=== PATIENT | male | born 1960 | race African-American/Black ===

== ENCOUNTER 2023-03-09 17:55 | Emergency (ER) | payer SELFPAY ==
--- OUTSIDE RECORDS SUMMARY | 2023-03-09 18:00 | XMS REPORT | Continuity of Care Document ---
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 [place] 12:00:39 12:48:23 [facility] 2021-06-28 2021-06-28 Outpatient [facility] [id number] [place] 09:24:26 10:14:51 [facility] 2021-06-28 2021-06-28 Outpatient [facility] [id number] [place] 09:02:31 09:05:42 [facility] 2021-05-11 2021-05-11 Outpatient [facility] [id number] [place] 00:00:00 00:00:00 [facility] 2021-05-10 2021-05-10 Outpatient [facility] [id number] [place] 09:01:38 09:47:51 [facility] 2021-05-10 2021-05-10 Outpatient [facility] [id number] [facility] 08:21:45 08:21:48 [facility] 2021-04-21 2021-04-21 [facility] [id number] [facility] 16:11:16 16:11:32 [facility] 2021-04-21 2021-04-21 Outpatient [facility] [id number] [facility] 14:02:49 14:03:51 [facility] 2021-03-15 2021-03-15 Outpatient [facility] [id number] [facility] 12:44:55 12:44:59 [facility] 2021-03-15 2021-03-15 Outpatient MAREKL, [facility] [id number] [facility] 11:04:31 11:35:02 [facility] 2021-03-01 2021-03-01 Outpatient [facility] [id number] [facility] 00:00:00 00:00:00 [facility] 2021-01-17 2021-01-21 Inpatient [facility] [id number] [facility] 15:51:00 23:00:00 [facility] 2021-01-13 2021-01-17 Hospital [facility] [id number] [facility] 20:25:00 15:51:00 Encounter GIULIA [facility] 2021-01-13 2021-01-13 Emergency ADINA, [facility] [id number] [facility] 20:44:29 21:06:05 [facility] 2020-12-28 2020-12-28 Outpatient [facility] [id number] [facility] 10:16:25 10:16:59 [facility] 2020-12-28 2020-12-28 Outpatient ARSENIO [facility] [id number] [facility] 00:00:00 00:00:00 [facility] Results Test Description Test Time Test Comments Results Result Comments Source HIV 1+2 Ab+HIV1 p24 Ag SerPl Ql [place] 2021-08-23 12:06:13 Test Item Value Reference Range Interpretation Comme nts HIV 1+2 Ab+HIV1 p24 Ag SerPl Ql IA (test code = 81161-2) NEGATIVE Negative HHSCMV PCR [id number] 09:10:00 Test Item Value Reference Range Interpretation Comments CMV PCR (test Negative Negative No Cytomegalov irus DNA code = Detected.This t est was 5000-5) developed and i ts performance characteristics determinedby [employer]. It has not been cleared or approved by the Food and DrugAdminis tration. The FDA has det ermined that such clear ance orapproval is n ot necessary. PAMELA (test Performed at: 01 - code = PAMELA) [address] [id number] Director: Bayron Garcia MD, Phone: [phone] [facility] DNA Quant, [id number] 07:09:00 Test Item Value Reference Range Interpretation Comments Luis Angel-[facility] Positive <100 Negative EBV DNA detect ed.The DNA Quant, copies/mL quantitative ra nge of PCR (test this assay is 1 00 to 1 code = million copies/ mL.This 29665-4) test was develo ped and its performance characteristics determinedby [employer]. It has not been cleared or approved by the Food and DrugAdminis tration. log10 EBV Unable to calcu late DNA Qn PCR result since (test code = [place] 62374-6) [facility]. PAMELA (test Performed at: - code = PAMELA) [address] [id number] Director: Bayron Garcia MD, Phone: [phone] [facility] HospitalMethylmalonic [id number] 17:08:00 Test Item Value Reference Interpretation Comments Range Methylmalonic 95 nmol/L 0-378 Acid, Serum (test code = 19984-1) Disclaimer: (test Comment This test was developed and code = 29122151) its perform ance characteristics determined by [facility]. It has not been cleared or appr ovedby the Food and Drug Administration. PAMELA (test code = Performed at: PAMELA) [facility]144 [address] [place], [place] [id number] Director: Bayron Garcia MD, Phone: [phone] [facility] HospitalNon-Manufacturing Quality Manager, Other, [id number] 10:48:00 Test Item Value Reference Range Interpretation Comments Case Report (test code Non-gynecologic = 507228718) Cytology Report Case: [id number] Authorizing Provider: Giulia Aguilar MD Collected: 01/14/2021 03:45 PM Ordering Location: Emergency [facility] Received: 01/17/2021 07:40 AM Pathologist: Neelima Henry MD Specimen: Other (Specify in Comments), Cerebrospinal Fluid Specimen Adequacy Satisfactory for (test code = evaluation 880988709) Final Diagnosis (test Negative for malignancy code = 069774975) See comment Comment (test code = h3unzXKbFQKflEJ9HnDkANK 873585771) uz1bec8AqzDGggPMuPUojeI BdcmLuhh06fPP6qE49IE4iL SVpDhJ9NFTgbfP3Lmt3JARw WRHklOMcB979k7uvy1prxhZ nvZU3tMlhVBPjNDPpZZahEB LrWdBkF1GgAXOiw1AmcW0cp CBmbHVpZCBpcyBwYXVjaWNl lKp3eZDwEUyktGsoqiTbAYB zwV2krL1nlFAyrf3ogNJrmZ == Pertinent Clinical m1fpzGNqUHHjz3ypWZOscQP Information (test code iYlJwRoRdTiKmLsc5KSSdwm = 08862358) O9Dtp4CGIoVCcdnX9bKDJzG HjgK4seahIbjZGzNTBwAIc8 pV5unBtmpP5vPlReCgUjIML LEWLxHmKvd9RyzdXsLUWysU ldSO9ktG0dMIUigBJiTEY8u DJnKOYdhdRgbPD8mCXrNOKh a6IbozwqlBAbJM3= Gross Description y7rjoNUuTLMysPHJNALlNHe (test code = 33983) ajoKlTFVomPSdJ0RustwdSH ghXE3iUE3ztIldmRZfbQUkD O6RGQNoVvYxJHQlnMAmrbFd RnWxUVMpmMSrhSO7TZXwMF6 laqajSGtzDUtgABXdlyO8XF DdmSLiJ0NiXNPcJA2hqkicV VC7AIdwvN5ccpZIPvipBt3o dHRibHtcZjFcZmNoYXJzZXQ jVISqkCubNNRtZFg0mD0HLr plELQ9SGOYTglxPTHsLJ6Tx 3gyWHOmjOPzYGX4TFwmeZDh DMIfQQXkXCs1VKUsIQfcaMZ cUO1dfJjaNzspmTgpt0CcoL BcXGlkIDUxMDAyIFxcZGIgI A6JToIlXCqwETYgBeGrPNd9 TVg2OA9AZdUzVPMwOyldUgL wDJDeBIq5OOvsSZ2EPXTbKj U3OBZ9MBIuFES0JuYjYHw8U DIgXFxmIEFyaWFsIFxcZnMg TRGxOMTqZKntchJ9JDWyEEk uXGZzMTYgIFxwYXIgDQpccG sulQ3yNJIhJ03yr6VHh6WvN M0KZCk2xgPeuncmiX5cKOBp eyGcJFdoeYIdI7jyQzKsPKD fUiEbQ5Jzg5XvB9iyKEOzXo a2eJCyheUgBZi5CVKgSrGxj 6bjyWLxYC3ZGFWAoPOdx5Mx kfQSAEBfl3UqoT2qw4unGOJ nbQZnPN3HUJYQnAQay5Snvy FElANfPVN3vQoqp0nwGYNmy WVwLU1KCDDvSKnpJGJqbPRZ LTB4BD7yRVtedZSfqudjUEC mP7RhV4LujlPntXXyZEPlgn Ude3pdUKY5TPQmoBVbbCTlX cQbKhfzLOH2ORxig3vbSVO5 XHNsbXVsdDAgDQpcZnMxNnt nAVVkB1VaQ7XywiI3HRq1 [facility] HealthVZ Real Time [id number] 17:08:00 Test Item Value Reference Range Interpretation Comments VZV Real Time Negative Negative This test was developed PCR (test and its perform ance code = characteristics 50781-0) determinedby [employer]. It has not been cleared or approved by the Food and DrugAdminis tration. The FDA has det ermined that such clear ance orapproval is n ot necessary. PAMELA (test Performed at: - code = PAMELA) [address] [id number] Director: Bayron Garcia MD, Phone: [phone] [facility] by [id number] 17:08:00 Test Item Value Reference Range Interpretation Comments HSV-1 DNA Negative Negative (test code = 04165-6) HSV-2 DNA Negative Negative This test was d eveloped (test code = and its perform ance 56419-3) characteristics determinedby [employer]. I t has not been cleare d or approved by the U.S. Food and Drug Administration. The FDA has determined that suchclearance o r approval is not necessary. This test is used for clinicalpurpose s. It should not be r egarded as investigatio nal or research. PAMELA (test Performed at: - code = PAMELA) [address] [id number] Director: Bayron Garcia MD, Phone: [phone] [facility] HealthQuantiferon TB Gold (In Tube)2021-01-18 18:08:00 Test Item Value Reference Range Interpretation Comments QuantiFERON Incubation Incubation (test performed. code = 61788958) QuantiFERON TB Negative Negative Chemiluminesc ence Gold Plus (test immunoassay code = 74121-8) methodology PAMELA (test code = Performed at: PAMELA) - Lab[address] [id number] Director: Nam Canchola MD, Phone: [phone] med at: 02 - [facility] Hhrmhwy95[address] [id number] Director: Dontrell Esquivel MD, Phone: [phone] [facility] HealthQuantiferon TB Gold [id number] 18:08:00 Test Item Value Reference Range Interpretation Comments QuantiFERON Comment The QuantiFERON -TB Criteria (test Gold Plus res ult is code = 8251-1) determined by subtractingthe Nil value from eith er TB antigen (Ag) tu be. The mitogen tubeserves as a control for the test. Quantiferon TB1 0.28 IU/mL (test code = 97218-1) Quantiferon TB2 0.26 IU/mL (test code = 88215-0) QuantiFERON Nil 0.27 IU/mL Value (test code = 04261-2) QuantiFERON >10.00 IU/mL Mitogen Value (test code = 50215-4) PAMELA (test code = Performed at: 02 PAMELA) - LabCo[address] [id number] Director: Dontrell Esquivel MD, Phone: [phone] [facility] HospitalVDRL, [id number] 17:28:00 Test Item Value Reference Range Interpretation Comments VDRL, CSF (test code = Non-Reactive Non-Reactive Titer 82509-8) Lab Interpretation (test code Normal = 10803-9) [facility] St[facility]/[id number] 11:07:00 Test Item Value Reference Range Interpretation Comments CSF Culture (test code No growth 3 days = 606-4) Gram Stain (test code No organisms seen = 664-3) PAMELA (test code = PAMELA) Reference value: No growth [facility] [id number] 05:21:00 Test Item Value Reference Range Interpretation Comments Sodium (test code = 141 mmol/L 871-988 6145-2) Potassium (test code = 4.1 mmol/L 3.5-5.1 2823-3) Chloride (test code = 105 mmol/L 98-107 2075-0) CO2 (test code = 27 mmol/L 21-31 54317663) Urea Nitrogen (test 13.0 mg/dL 7-25 code = 11497594) Creatinine (test code = 1.0 mg/dL 0.7-1.3 17044960) Glucose (test code = 87 mg/dL 70-110 67548433) Calcium (test code = 8.9 mg/dL 8.6-10.3 32372367) eGFR If Am 93 See_Comment [Automat ed message] (test code = 46314984) The s ystem which generated this result transmit robson reference range : >=90 mL/min/1.7 3 m2. The reference r nate was not used to interpret this result as normal/abnormal . eGFR If non- Am 80 See_Comment L [Aut omated message] (test code = 13801328) The s ystem which generated this result transmit robson reference range : >=90 mL/min/1.7 3 m2. The reference r nate was not used to interpret this result as normal/abnormal . Anion Gap (test code = 9 mmol/L 5-16 24805156) Lab Interpretation Abnormal (test code = 62964-5) [facility] [id number] 05:21:00 Test Item Value Reference Range Interpretation Comments Magnesium (test code = 23346521) 1.9 mg/dL 1.9-2.7 Lab Interpretation (test code = Normal 08278-1) [facility] HospitalOefzcxElyextavpk2986-52-32 05:21:00 Test Item Value Reference Range Interpretation Comments Phosphorus (test code = 2777-1) 4.0 mg/dL 2.5-5 Lab Interpretation (test code = Normal 88532-2) [facility] HospitalCBC/[id number] 04:57:00 Test Item Value Reference Range Interpretation Comments WBC (test code = 6690-2) 8.1 K/uL 4.5-12 RBC (test code = 789-8) 3.73 See_Comment L [Au tomated message] The system [employer] h generated this result transmit robson reference range : 4.60 - 6.20 M/u L. The reference r nate was not used to interpret this result as normal/abnormal . Hemoglobin (test code = 11.7 g/dL 14-18 L 718-7) Hematocrit (test code = 37.6 % 40-54 L 4544-3) MCV (test code = 787-2) 100.8 fL 82-92 H MCH (test code = 785-6) 31.4 pg 27-31 H MCHC (test code = 786-4) 31.1 g/dL 32-36 L RDW (test code = 44.1 fL 35.1-43.9 H 83320-5) Platelet (test code = 273 K/uL 150-400 777-3) Mean Platelet Volume 11.7 fL 9.4-12.4 (test code = 28275-9) Percent NRBC (test code 0.0 % 0-0 = 37790790) Neutrophil (test code = 52.2 % 34-67.9 770-8) Lymphs (test code = 35.4 % 21.8-50 736-9) Monocytes (test code = 9.6 % 5.3-12 5905-5) Eos (test code = 713-8) 2.1 % 0.8-5 Basos (test code = 0.5 % 0.2-1.2 706-2) Immature Granulocytes 0.2 % 0-0.5 (test code = 44584945) Neutrophils (Absolute) 4.22 K/uL 1.78-5.36 (test code = 64493070) Lymphs (Absolute) (test 2.86 K/uL 1.32-3.57 code = 12428903) Monocytes(Absolute) 0.78 K/uL 0.3-0.82 (test code = 11474185) Eos (Absolute) (test 0.17 K/uL 0.04-0.54 code = 13629679) Baso (Absolute) (test 0.04 K/uL 0.01-0.08 code = 56308371) Immature Grans (Abs) 0.02 K/uL 0-0.03 (test code = 36595298) Absolute NRBC (test code 0.00 K/uL 0-0.11 = 77480978) Lab Interpretation (test Abnormal code = 60579-9) [facility] HospitalWomlwbWvjdkjtmhvsi2227-94-79 13:50:00 Test Item Value Reference Range Interpretation Comments Homocysteine (test code = 10.1 umol/L 3.2-10.7 64366884) Lab Interpretation (test code = Normal 07455-1) [facility] FACE, ORBIT W & W/O [id number] 12:21:27IMPRESSION: 1. Mild bilateral posterior staphylomas. 2. No other orbital abnormality.3. Other intracranial findings as detailed on the prior brain MRIreports. Dictated By: Quinn Mcintosh MD, 01/16/2021 11:44 AM I have reviewed the study and agree with the findings in this report. Signed By: Daniel Paz MD, 01/16/2021 12:21 PM Interface, Rad/Mammog In - 01/16/2021 12:26 PM CDT Exam MRI of the orbits without and with contrastHistory: Bilateral cranial nerve palsies Comparison studies: Brain MRI and IAC protocol 01/14/2021Head CT/CTA 01/13/2021Technique: Multiplanar, multisequence MRI examination of the orbits was performedwithout and with the administration of intravenous, gadolinium basedcontrast.Contrast: 16 cc of Dotarem.Complications: NoneFINDINGS:Globes: Mild posterior bulging of the bilateral globes at the opticdiscs. Otherwise,normal in size and configurationAnterior and posterior chambers: Normal in signal .Lenses: Normal insize and configurationIntra/extraconal spaces: No massesExtraocular muscles: Normal in size and symmetricOptic Nerves: Normal in size and symmetricOptic Chiasm: Normal in size and signalCavernous sinuses: Normal in size and symmetricSinuses: T2 hyperintense mucosal thickening of the maxillary sinuses w ith leftmaxillary mucus retention cysts.Incidental findings:* Stable encephalomalacia and gliosis ofthe left thalamus and leftposterior inferior cerebellar artery tonsillo-hemispheric territory.* Partially imaged T2/FLAIR hyperintense signal in the bilateralperiventricular white matter, external capsu les, and subcortical whitematter. IMPRESSIONIMPRESSION:1. Mild bilateral posterior staphylomas. 2. No other orbital abnormality.3. Other intracranial findings as detailed on the prior brain MRIreports.Dictated By: Quinn Mcintosh MD, 01/16/2021 11:44 AMI have reviewed the study and agree with the findings in this report.Signed By: Daniel Paz MD, 01/16/2021 12:21 PMGrace HospitalDifferential, [id number] 09:28:00 Test Item Value Reference Range Interpretation Comments Neutrophil (test code = 02710980) 44.0 % 34-67.9 Band (test code = 00986972) 0.0 % Lymphs (test code = 77062156) 44.0 % 21.8-50 Monocytes (test code = 88742887) 8.0 % 5.3-12 Eos (test code = 62360806) 4.0 % 0.8-5 Basos (test code = 69813456) 0.0 % 0.2-1.2 L Neutrophils (Absolute) (test code = 3.70 K/uL 1.78-5.36 64683062) Lymphs (Absolute) (test code = 3.70 K/uL 1.32-3.57 H 60572761) Monocytes(Absolute) (test code = 0.67 K/uL 0.3-0.82 59896057) Eos (Absolute) (test code = 0.34 K/uL 0.04-0.54 18423903) Baso (Absolute) (test code = 0.00 K/uL 0.01-0.08 L 69180436) Cells Counted (test code = 93914254) Lab Interpretation (test code = Abnormal 61724-9) [facility] [id number] 09:10:00 Test Item Value Reference Range Interpretation Comments TIBC (test code = 295 ug/dL 558-784 9753-7) UIBC (test code = 264 ug/dL 422-645 3927-5) Iron (test code = 31 ug/dL 38-169 L Result 2498-4) unreliable: Result below instrument usable range. % Iron Sat (test code 11 % 15-55 L Result = 2502-3) unreliable: Result below instrument usable range. PAMELA (test code = PAMELA) Performed at: [address] [place] [id number] Director: Nam Canchola MD, Phone: [phone] Lab Interpretation Abnormal (test code = 21334-6) [facility] HospitalCryptococcal [id number] 08:49:00 Test Item Value Reference Range Interpretation Comments Cryptococcal Ag (test code = Negative Negative 26715-0) Cryptococcal Antigen Titer (test code = 69560-7) [facility] HospitalCell Count, [id number] 19:35:00 Test Item Value Reference Range Interpretation Comments Color (test code = Colorless Colorless 51711721) Appearance (test Clear Clear code = 61296322) Tube Number (test Tube #1 code = 33965851) WBC (test code = 1 /uL Differentia l not 29882611) performed on co unts <5/cumm. Cytosp in preparation available for review. RBC (test code = 0 /uL None seen 88629696) Clots? (test code No = 86565956) PAMELA (test code = Cell count was PAMELA) conducted after one hour from time of collection. Stability cannot be guaranteed due to possible sample degradation. If clinically warranted, repeat testing on a fresh sample received within one hour of collection may be requested. [facility] [id number] 17:41:00 Test Item Value Reference Range Interpretation Comments Glucose, CSF (test code = 81239761) 78 mg/dL 40-70 H Lab Interpretation (test code = Abnormal 49006-8) [facility], [id number] 17:41:00 Test Item Value Reference Range Interpretation Comments Protein, CSF (test code = 45.0 mg/dL 15-55 [id number]) Lab Interpretation (test code = Normal 79192-3) [facility] BRAIN W AND W/O [id number] 15:37:06IMPRESSION: No abnormalities of the brainstem or cranial nerves.Other intracranial findings are detailed on same-day MRI Brain report. If the report is "FINALIZED" it indicates that the attending/staffradiologist has reviewed the images and agrees with the resident'sinterpretation. Dictated By: Ling Gentile MD, 01/14/2021 2:59 PM I have reviewed the study and agree with the findings in this report. Signed By: Bharathi Galdamez MD, 01/14/2021 3:37 PM Interface, Rad/Mammog In - 01/14/2021 3:42 PM CDT EXAMINATION: MRI BRAIN W AND W/O CONTRASTINDICATION: Bilateral 6th nerve palsies. Please perform midbrain/pontineprotocol, also evaluate CN 6b/l. DIAGNOSIS: 6th nerve palsy, bilateral ADDITIONAL HISTORY: Left CN6 palsy and ataxia. Clinical suspicion for Wernickeencephalopathy. History of alcohol and cocaine abuse.Patient (Age): 1960 (60 years)Patient Sex: MaleCOMPARISON:Same day brain MRI.Previous day head CT and intracranial/cervical CT angiography.TECHNIQUE: Multi-planar, multi-sequence imaging was acquired of the IAC without andwith intravenous contrast. IAC protocol was performed.CONTRAST: 17 mL of DotaremCOMPLICATIONS: NoneFINDINGS: Brainstem: No signal abnormalities.Cerebellopontine Angle Cisterns: No masses.Internal Wenceslao tory Canals: No masses or abnormal enhancement.Membranous Labyrinth: Normal cochlea, vestibule, and semicircular canals.Facial Nerves: No masses. No abnormal enhancement.Brain Parenchyma: Better evaluated on same-day dedicated brain MRI.Vessels: Persistent flow abnormality in the proximal left V4.Sella r/Suprasellar region: No abnormalities.Craniocervical junction: No abnormalities.IMPRESSIONIMPRESSION:No abnormalities of the brainstem or cranial nerves.Other intracranial findings are detailed on same-day MRI Brain report.If the report is "FINALIZED" it indicates that the attending/staffradiologist has reviewed the images and agrees with the resident'sinterpretation.Dictated By: Ling Gentile MD, 01/14/2021 2:59 PMI have reviewed the study and agree with the findings in this report.Signed By: Bharathi Galdamez MD, 01/14/2021 3:37 PM [facility] [id number] 12:39:00 Test Item Value Reference Range Interpretation Comments HIV Ag/Ab Combo (test code = Negative Negative 68782-6) Lab Interpretation (test code = Normal 70866-7) [facility]philis Screen for [id number] 12:10:00 Test Item Value Reference Range Interpretation Comments RPR (test code = 98763-4) Reactive Non-reactive A TPA (test code = 95926-5) Positive Negative, Equivocal A RPR Titer (test code = 71931-4) 1:1 Titer Final Report (test code = Positive Negative A 80706-8) Lab Interpretation (test code = Abnormal 01986-0) [facility]ST 2 [id number] 11:06:39IMPRESSION: No acute thoracic abnormality, specifically no effusions orconsolidations. If the reportis "FINALIZED" it indicates that the attending/staffradiologist has reviewed the images and agrees with the resident'sinterpretation. Dictated By: Lloyd Perez MD, 01/14/2021 10:56 AM I have reviewed the study and agree with the findings in this report. Signed By: Iliana Sher MD, 01/14/2021 11:06 AM Interface, Rad/Mammog In - 01/14/2021 11:11 AM CDT EXAMINATION: XRAY CHEST 2 VIEWS, frontal and lateralINDICATION: evaluate for effusions, consolidations COMPARISON: Chest radiograph on 12/04/2019 FINDINGS: TUBES/LINES: None.LUNGS: No consolidations or edema.PLEURA: No pleural effusions. No pneumothorax.HEART/MEDIASTINUM: Unremarkable.MUSCULOSKELETAL: No acute findings.UPPER ABDOMEN: No subdiaphragmatic free air.IMPRESSIONIMPRESSION: No acute thoracic abnormality, specifically no effusions orconsolidations.If the report is "FINALIZED" it indicates that the attending/staffradiologist has reviewed the images and agrees with the resident'sinterpretation.Dictated By: Lloyd Perez MD, 01/14/2021 10:56 AMI have reviewed the study and agree with the f indings in this report.Signed By: Iliana Sher MD, 01/14/2021 11:06 [facility] BRAIN W/O [id number] 10:48:06IMPRESSION: 1. No acute infarcts or hemorrhage. No specific imaging stigmata ofWernicke encephalopathy. 2. Severe chronic microvascular ischemic white matter changes. 3. Chronic infarcts in the right middle frontal gyrus, the rightsuperior parietal lobule, right precentral gyrus, left thalamus, and theleft cerebellum in the tonsillohemispheric PICA territory. If the report is "FINALIZED" it indicatesthat the attending/staffradiologist has reviewed the images and agrees with the resident'sinterpretation. Dictated By: Ling Gentile MD, 01/14/2021 10:24 AM I have reviewed the study and agree with the findings in this report. 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 Clinical suspicion for Wernickeencephalopathy. History of alcohol and cocaine abuse.Patient (Age): 1960 (60 years)Patient Sex: MaleCOMPARISON:Intracranial and cervical CT angiography is on 01/13/2021.TECHNIQUE: Multi-planar, multi-sequence imaging was acquired of the brain withoutintravenous contrast. Routine protocol was performed.CONTRAST: NoneCOMPLICATIONS: NoneFINDINGS:Scalp: No abnormalities.Bone/Bone Marrow: No abnormalities.Extra-Axial Spaces: No masses of fluid collections.Brain: Sulci: Appropriate for patient's age.Ventricles: Normal in size and configuration. No hydrocephalus.Parenchyma: Subtle increased T2/FLAIR hyperintense signal to mammillarybodies. Extensive T2/FLAIR hyperintense signal in the periventricularwhite matter, subcortical white matter, the external capsules, and thetemporal pole white matter. No masses. No acute infarct.Encephalomalacia and gliosis with associated hypointense signal on SWIcentered in the right middle frontal gyrus, the right superior parietallobule, and the right precentral gyrus. Additional region ofencephalomalacia and gliosis the left PICA tonsillohemispheric territoryand in the left thalamus.Vessels: Absence of the flow void a proximal portion of the left V4,which corresponds to occlusion noted on CT angiography.Sellar/Suprasellar Region: No abnormalities.Skull Base/Sinuses: Circumferential mucosal thickening of the maxillarysinuses with left maxillary mucus retention cysts.Craniocervical Junction: No abnorm alities.IMPRESSIONIMPRESSION:1. No acute infarcts or hemorrhage. No specific imaging stigmata ofWernicke encephalopathy.2. Severe chronic microvascular ischemic white matter changes.3. Chronic infarctsin the right middle frontal gyrus, the rightsuperior parietal lobule, right precentral gyrus, left thalamus, and theleft cerebellum in the tonsillohemispheric PICA territory.If the report is "FINALIZED" it indicates that the attending/staffradiologist has reviewed the images and agrees with the resident'sinterpretation.Dictated By: Ling Gentile MD, 01/14/2021 10:24 AMI have reviewed the study and agreewith the findings in this report.Signed By: Bharathi Galdamez MD, 01/14/2021 10:48 [facility] TRANSTHORACIC ECHO (TTE)2021-01-14 10:28:00TRANSTHORACIC ECHO (TTE) Transthoracic Echo Report MELANIE PEACE Age: 60 Gender: M : 1960 Exam Date: 01/14/2021 08:33 Exam Location: [facility] Echo Ordering Phys: LEOBARDO AGUILAR Referring Phys: [id number] Reading Phys: Milton Shields MD Fellow Phys: Edel Sow M.D. Fellow Phys: Supervisor Brake Repair: Edna Viera Reason For Exam: Indications: stroke, Cerebrovascular disease, unspecified ICD-9 Codes: I67.9 Exam Type: TRANSTHORACIC ECHO (TTE) Procedure CPT: 30817 Addtional CPT: Ht (in): 73 BSA: 2.08 HR: 68 Rhythm: Sinus rhythm Wt (lb): 184 BP: 99 / 77 Technical Quality: History: MEASUREMENTS Normal ranges based on 95% confidence intervals for adults, some normal patients may fall outside of this range especially when indexing for BSA 2D ECHO LV Diastolic Diameter PLAX 5 cm 4.2- 5.8 (M) / 3.8-5.2 (F) LV Systolic Diameter PLAX 3.2 cm 2.5-4.0 (M) / 2.2-3.5 (F) LV Fractional Shortening PLAX 35 % IVS Diastolic Thickness 0.83 cm 0.6-1.0 (M) / 0.6-0.9 (F) LVPW Diastolic Thickness 0.79 cm 0.6-1.0 (M) / 0.6-0.9 (F) LV Relative Wall Thickness 0.33 <= 0.42 LVOT Diameter 2.2 cm Aortic Root Diameter 3.4 cm LA Volume 58.1 cm LA Volume Index 28 cm/m2 16 - 34 cm/m2 LV Mass by linear method 136 g LV Mass by linear method Index 65.4 g/m2 RA Volume 25.1 cm RA Volume Index12.1 cm/m2 DOPPLER AV Peak Velocity 166 cm/s AV Peak Gradient 11.1 mmHg AV Mean Velocity 103 cm/s AV Mean Gradient 5.2 mmHg AV Velocity Time Integral 31.6 cm LVOT Peak Velocity 116 cm/s LVOT Peak Gradient 5.4 mmHg LVOT Mean Velocity 77.9 cm/s LVOT Mean Gradient 2.8 mmHg LVOT Velocity Time Integral 20.5 cm LVOT Stroke Volume 74.3 cm LVOT Cardiac Output 5.6 liters/min AV Area Cont Eq vti 2.4 cm2 AV Area Cont Eq pk 2.5 cm2 Mitral E Point Velocity 62.4 cm/s Mitral A Point Velocity 73.5 cm/s MitralE to A Ratio 0.85 TR Peak Velocity 217 cm/s TR Peak Gradient 18.8 mmHg LV E' Lateral Velocity 7.7 cm/ s Mitral E to LV E' Lateral Ratio 8.1 LV E' Septal Velocity 7.5 cm/s Mitral E to LV E' Septal Ratio 8.3 FINDINGS Left Ventricle The left ventricle is normal in size. Normal LV wall thickness. LV systolic function is normal. LVEF is 65 - 69%. There are no regional wall motion abnormalities. There is impaired LV relaxation with normal filling pressures. Right Ventricle The right ventricle is normal in size and systolic function. Right Atrium The right atrium is normal in size. Left Atrium The left atrium is normal in size. IAS Agitated saline contrast administered with and without Valsalva maneuver demonstrates no interatrial shunt. Mitral Valve Elongation/redundancy of the anterior mitral valve leaflet and chordae. There is trace mitral regurgitation. Aortic Valve The aortic valve is trileaflet and structurally normal. There is no aortic stenosis. There is no aortic regurgitation. Tricuspid ValveStructurally normal tricuspid valve. There is trace tricuspid regurgitation.pulmonary artery systolic pressure estimated to be 20-25 mm Hg assuming an RA pressure of 0-5 mm Hg. Pulmonic Valve Structurally normal pulmonic valve. There is mild pulmonic regurgitation. Pericardium No pericardial effusion.Aorta Normal aortic root for body surface area. IVC The inferior vena cava is normal in size. RA pressure is 0-5 mmHg. CONCLUSIONS The left ventricle is normal in size. Normal LV wall thickness. LV systolic function is normal. LVEF is 65 - 69%. There are no regional wall motion abnormalities. There isimpaired LV relaxation with normal filling pressures. The right ventricle is normal in size and systolic function. Normal atrial size. Trace aortic regurgitation. Agitated saline contrast administered with and without Valsalva maneuver demonstrates no interatrial shunt. No prior study for comparison. Milton Shields MD (Electronically Signed) Final Date: 14 January 2021 10:27 2D ECHO LV Diastolic Diameter PLAX 5 cm 4.2-5.8 (M) / 3.8-5.2 (F) LV Systolic Diameter PLAX 3.2 cm 2.5-4.0 (M) / 2.2-3.5 (F) LV Fractional Shortening PLAX 35 % IVS Diastolic Thickness 0.83 cm 0.6-1.0 (M) / 0.6-0.9 (F) LVPW Diastolic Thickness 0.79 cm 0.6-1.0 (M) / 0.6-0.9 (F) LV Relative Wall Thickness 0.33 <= 0.42 LVOT Diameter 2.2 cm Aortic Root Diameter 3.4 cm LA Volume 58.1 cm LA Volume Index 28 cm/m2 16 - 34 cm/m2 LVMass by linear method 136 g LV Mass by linear method Index 65.4 g/m2 RA Volume 25.1 cm RA Volume Index 12.1 cm/m2 DOPPLER AV Peak Velocity 166 cm/s AV Peak Gradient 11.1 mmHg AV Mean Velocity 103 cm/s AV Mean Gradient 5.2 mmHg AV Velocity Time Integral 31.6 cm LVOT Peak Velocity 116 cm/s LVOT Peak Gradient 5.4 mmHg LVOT Mean Velocity 77.9 cm/s LVOT Mean Gradient 2.8 mmHg LVOT Velocity Time Integral 20.5 cm LVOT Stroke Volume 74.3 cm LVOT Cardiac Output 5.6 liters/min AV Area Cont Eq vti 2.4cm2 AV Area Cont Eq pk 2.5 cm2 Mitral E Point Velocity 62.4 cm/s Mitral A Point Velocity 73.5 cm/s Mitral E to A Ratio 0.85 TR Peak Velocity 217 cm/s TR Peak Gradient 18.8 mmHg LV E' Lateral Velocity 7.7 cm/s Mitral E to LV E' Lateral Ratio 8.1 LV E' Septal Velocity 7.5 cm/s Mitral E to LV E' Septal Ratio 8.3 [place] [id number] 08:48:00 Test Item Value Reference Range Interpretation Comments Hemoglobin A1c (test code = 4548-4) 4.9 % 4.3-6.1 Estimated Average Glucose (test code 94 mg/dL 70-110 = 74139813) Lab Interpretation (test code = Normal 30851-9) [facility] HospitalDifferential, [id number] 08:45:00 Test Item Value Reference Range Interpretation Comments Neutrophil (test code = 31403358) 64.0 % 34-67.9 Band (test code = 31056757) 0.0 % Lymphs (test code = 18202039) 31.0 % 21.8-50 Monocytes (test code = 28577551) 4.0 % 5.3-12 L Eos (test code = 08488656) 0.0 % 0.8-5 L Basos (test code = 63683157) 1.0 % 0.2-1.2 Neutrophils (Absolute) (test code = 6.46 K/uL 1.78-5.36 H 26301086) Lymphs (Absolute) (test code = 3.13 K/uL 1.32-3.57 88926955) Monocytes(Absolute) (test code = 0.40 K/uL 0.3-0.82 68491125) Eos (Absolute) (test code = 0.00 K/uL 0.04-0.54 L 16928285) Baso (Absolute) (test code = 0.10 K/uL 0.01-0.08 H 31940761) Cells Counted (test code = 17610960) Lab Interpretation (test code = Abnormal 77425-2) [facility] GLUCOSE POC docked [id number] 07:55:00 Test Item Value Reference Range Interpretation Comments Glucose POC (test code = 50152184) 110 mg/dL 74-106 H Lab Interpretation (test code = Abnormal 61907-7) [facility] [id number] 06:40:00 Test Item Value Reference Range Interpretation Comments Folic Acid (test code = >24.8 5.9-24.8 H A re sult of < 4.0 27145198) ng/mL = Deficie ncy. Patien Fasting? (test code Yes = 19626357) Lab Interpretation (test Abnormal code = 77598-5) [facility]Coronavirus, CoVID-19, [id number] 03:47:00 Test Item Value Reference Interpretation Comments Range COVID-19 Not Detected Not Detected INTERPRETATION: (SARS-COV-2) (test No detect able code = 13811-4) levels of SARS-CoV-2 Coronavirus (COVID-19) were present in this patient's sampl e by this test. A not detected result does not exclude the possibility of active infectio n with this virus due to other factors that ma y affect the results such as a poorly collected sample, viral titers below th e limit of detection of th e assay, and the infrequent possibility of inhibitors in the sample. Thi s result should b e interpreted in conjunction wit h clinical, radiographic, and other laboratory findings and should not be used as the kathleen e indicator of active infectio n with SARS-CoV-2 Coronavirus (COVID-19). PAMELA (test code = COMMENT: This trisha PAMELA) real-time reverse transcriptase polymerase chain reaction (RT-PCR) test rapidly detects SARS-CoV-2 (COVID-19) virus from nasopharyngeal and nasal swab specimens. In accordance with the FDA's guidance document "Policy for Diagnostic Tests for Coronavirus Disease-2019 during the Public Health Emergency", this test was developed, and its performance characteristics were verified by the [facility] molecular diagnostics laboratory and is authorized for clinical diagnostic use. This laboratory is certified under the Clinical Laboratory Improvement Amendments (CLIA) as qualified to perform high complexity clinical laboratory testing. Lab Interpretation Normal (test code = 92401-5) [facility] HospitalVitamin [id number] 03:38:00 Test Item Value Reference Range Interpretation Comments Vitamin B12 (test code 321 pg/mL See comment Rosa l: 180-914 = 02884473) pg/mLIntermitte nt: 145-180 pg/mLDeficient: <=145.0 pg/mL [facility] [id number] 03:34:00 Test Item Value Reference Range Interpretation Comments Ferritin (test code = 81638816) 90.2 ng/mL 23.9-336.2 Lab Interpretation (test code = Normal 54820-6) [facility] HospitalTSH [Thyroid Stimulating Hormone]2021-01-14 03:27:00 Test Item Value Reference Range Interpretation Comments TSH (test code = 1.04 See_Comment [Automated message] 42237224) The system [employer] Over [employer] generated this result transmitted ref erence range: 0.45 - 5 .33 uIU/mL. The ref erence range was not u sed to interpret this result as normal/abnor mal. Lab Interpretation (test Normal code = 49420-5) [facility] HospitalLipid [id number] 03:16:00 Test Item Value Reference Range Interpretation Comments Cholesterol (test code 214.0 mg/dL See_Comment H [Aut omated = 2093-3) message] The sy stem which generated this result transmitted reference range : <=200.0. The reference range was not used to interpret this result as normal/abnormal . Triglyceride (test 57 mg/dL <150 code = 97917492) HDL (test code = 56.0 mg/dL See Reference 5-9) Range Narrative. LDL (test code = 147 mg/dL <100 H Optimal: < 100.0 40149-1) mg/dLNear Optim al: 120-129 mg/dLBorderline : 130-159 mg/dLHi gh: 160-189 mg/dLVe ry High: >=190 mg/ dL Patient Fasting? (test Yes y code = 25468563) Lab Interpretation Abnormal (test code = 62098-1) [facility] HospitalUrine Drug [id number] 03:12:00 Test Item Value Reference Range Interpretation Comments pH, Ur (test code = 6.0 06256137) pH, Ur (test code = 6.0 68343705) Opiate, Ur (test code Negative Negative Calibr ated Standard: = 25004-7) Morphine Positi ve if urine level > o r = 300 ng/dL Amphetamine (test code Negative Negative Calib rated Standard: = 20030-7) D-Methamphetami ne Positive if uri ne level > or = 1000 ng/ mL Barbiturate (test code Negative Negative Calib rated Standard: = 04792-4) Secobarbital Po sitive if urine level is > or = 200 ng/mL Benzodiazepine (test Negative Negative Calibra robson Standard: code = 99377-4) Lormethazepa m Positive if urine level is > or = 200 ng/mL Cocaine (test code = Positive Negative A Calibra robson Standard: 03161-3) Benzoylecgonine Positive if uri ne level > or = 300 ng/d L PCP (test code = Negative Negative Calibrated Standard: 01707-5) Phencyclidine P ositive if urine level > or = 25 ng/dL Cannabinoid (test code Negative Negative Calib rated Standard: 11 = 77614-9) nor-delta(9)-TH C carboxylic acid Positive if uri ne level > or = 50 ng/mL Lab Interpretation Abnormal (test code = 14741-4) [facility] [id number] 03:10:00 Test Item Value Reference Range Interpretation Comments Color (test code = Yellow Colorless, Straw, 01139725) Yellow Clarity (test code = Clear Clear 37386204) Spec [place], Ur (test >1.035 1.001-1.035 H code = 06449248) pH, Ur (test code = 6.0 5.0-8.0 67038562) Protein, Ur (test code Negative Negative mg/dL = 38224032) Glucose, Ur (test code Negative Negative mg/dL = 90645580) Ketone, Ur (test code = Negative Negative mg/dL 88308716) Bilirubin, Ur (test Negative Negative mg/dL code = 08773169) Nitrite, Ur (test code Negative Negative = 84054511) Leukocyte (test code = Negative Negative mg/dL 95674890) Blood, Ur (test code = Negative Negative mg/dL 74106594) Epithelial Cell (test <1 See_Comment [Auto mated code = 22124825) message] [employer] system which generated this result transmitted reference range : <=1 /HPF. The reference range was not used to interpret this result as normal/abnormal . Mucous (test code = Present None seen /HPF A 80654922) Urobilinogen, Ur (test 1.0 EU/dL <1.0 A code = 44577036) Lab Interpretation Abnormal (test code = 13677-4) [facility] HEAD W [id number] 23:25:57IMPRESSION: Head CT: 1. No mass, acute hemorrhage or acute cortical infarct.2. 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 Severe chronic microvascular ischemic changes.4. No changes from the same day noncontrast head CT on 01/13/2021 at8:53 PM. Brain MRI may further evaluate if there is persistent concern for acuteischemia. Neck and intracranial CTAs: 1. Partially occluded left vertebral artery with nonopacified V1 and U7pzchyqgi, partially reconstituted flow within the V3 segment, fillingdefect compatible with age- indeterminate thrombus in the intradural G4eryjdgx nearthe dural insertion and high-grade stenosis in the proximalintradural V4 segment.2. Stenosis in the b ilateral posterior M2 MCA divisions, high-grade onthe left and mild on the right. Stenosis on the left may place thispatient in risk for insufficiency ischemia in the distal posterior leftMCA territory.3. No other major arterial branch occlusion or significant stenosis inthe neck or intracranial circulation. Dictated By: Ananth Sahni MD, 01/13/2021 10:42 PM I have reviewed the study and agree with the findings in this report. Signed By: Norberto Sanchez MD, 01/13/2021 11:25 PM Interface, Rad/Mammog In - 01/13/2021 11:31 PM CDT Exams: Neck andIntracranial CT angiograms.History: Neuro deficit, acute, stroke suspected Vomiting, intractabilityof vomiting not specified, presence of nausea not specified, unspecifiedvomiting type Comparison studies: Head CT 01/13/2021.Technique: Axial CT scans obtained from the skull base to the vertex withoutwithout IV contrast followed by additional axial images through the neckand intracranial regions during the injection of IV contrast. A head CTwith contrast was obtained as well. For optimization of anatomicevaluation, multiplanar reconstruction, maximum intensity projections,and advanced 3-D off-line postprocessing were obtained on a dedicatedstand-alone workstation under the direct supervision of the interpretingphysician.Dose modulation, iterative reconstruction, and/or weight basedadjustment of the mA/kV was utilized to reduce the radiation dose to aslow as reasonably achievable.IV Contrast 100 cc of Omnipaque.Complication: NoneRadiation dose: Total DLP: 3273 mGy*cmEstimated Effective Dose: DLP x 0.031 mSvFINDINGS: Head CT's without and with contrast: No enhancing abnormalities.No changes from the same day noncontrast head CT.See impression.Neck and Intracranial CTAs:If present, stenosis at the carotid bulbs is measured based on NASCETcriteria, i.e. area of maximal stenosis compared to the cervical ICA distal to thebulb.Aortic arch and major branches: Patent. No abnormalities.Common carotid arteries: Patent with mild luminal irregularity bilaterally which may be due tomild soft atherosclerotic plaque without significant stenosis.Carotid bulbs: Patent, no (0%) stenosis by NASCET criteria.Mildcalcified and soft plaque bilaterally without significant stenosis.Internal carotid arteries: Patentwith calcified plaque in the bilateral cavernous andparaophthalmic segments without significant stenosis.Anterior cerebral arteries:Patent. No proximal branch occlusion or stenosis.Middle cerebral arteries: Patent, no proximal branch occlusion.High-grade short segmental stenosis within the proximal segment of theleft posterior M2 MCA division and mild stenosis within the proximalsegment of the right posterior M2 MCA division.Right vertebral artery:Patent, no abnormalities.Left vertebral artery:Nonvisualized left V1 through V2 segments with partial segmentalopacification of the distal left V3 segment. The proximal left U4jexyrit is with filling defect which may reflect thrombus (series 4,image 317). The remaining left intradural V4 segment is with luminalirregularity and with severe stenosis in its proximal segment beyond thearea of probable thrombus.Basilar artery: Patent with mild luminal irregularity which may be due toatherosclerosis without significant stenosis.Posterior cerebral arteries: P atent, no proximal branch occlusion. Mild luminal irregularity withoutsignificant stenosis likely due to atherosclerosis. 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 Mildretrolisthesis of C5 over C6. Mild multilevel disc degeneration withmild canal stenosis at C5-C6. Multilevel uncovertebral and facetarthrosis contribute to multilevel foraminal stenosis which is moderateleft and mild right at C2-C3, moderate bilaterally at C3-C4, moderateright and mild left at C4-C5,severe bilaterally at C5-C6.Other findings:Dental caries with multifocal periodontal disease.Partially opacified left maxillary sinus with peripheral mucosalthickening and polyps or retention cysts andmild mucosal thickening inthe right maxillary sinus. Maxillary periodontal disease raises thepossibility for Yane genic source for maxillary sinus and formation.IMPRESSIONIMPRESSION: Head CT:1. No mass, acute hemorrhage or acute cortical infarct.2. Chronic left posterior cerebellar and right superiorparietalinfarcts.3. Severe chronic microvascular ischemic changes.4. No changes from the same day noncontrast head CT on 01/13/2021 at8:53 PM.Brain MRI may further evaluate if there is persistent concern for acuteischemia.Neck and intracranial CTAs:1. Partially occluded left vertebral artery with nonopacified V1 and Y2erdyedqg, partially reconstituted flow within the V3 segment, fillingdefect compatible with age-indeterminate thrombus in the intradural Y7frpudho near the dural insertion and high-grade stenosis in the proximalintradural V4 segment.2. Stenosis in the bilateral posterior M2 MCA divisions, high-grade onthe left and mild on the right. Stenosis on the left may place thispatient in risk for insufficiency ischemia in the distal posterior leftMCA territory.3. No other major arterial branchocclusion or significant stenosis inthe neck or intracranial circulation.Dictated By: Ananth Plata, 01/13/2021 10:42 PMI have reviewed the study and agree with the findings in this report.Signed By: Norberto Sanchez MD, 01/13/2021 11:25 PMGrace HospitalCTA NECK W [id number] 23:25:57IMPRESSION: Head CT: 1. No mass, acute hemorrhage or acute cortical infarct.2. 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 Severe chronic microvascular ischemic changes.4. No changes from the same day noncontrast head CT on 01/13/2021 at8:53 PM. Brain MRI may further evaluate if there is persistent concern for acuteischemia. Neck and intracranial CTAs: 1. Partially occluded left vertebral artery with nonopacified V1 and K0tcmetbfh, partially reconstituted flow within the V3 segment, fillingdefect compatible with age-indeterminate thrombus in the intradural Q1gyksaqk nearthe dural insertion and high-grade stenosis in the proximalintradural V4 segment.2. Stenosis in the bilateral posterior M2 MCA divisions, high-grade onthe left and mild on the right. Stenosis on the left may place thispatient in risk for insufficiency ischemia in the distal posterior leftMCA territory.3. No other major arterial branch occlusion or significant stenosis inthe neck or intracranial circulation. Dictated By: Ananth Sahni MD, 01/13/2021 10:42 PM I have reviewed the study and agree with the findings in this report. Signed By: Norberto Sanchez MD, 01/13/2021 11:25 PM Interface, Rad/Mammog In - 01/13/2021 11:31 PM CDT Exams: Neck and Intracranial CT angiograms.History: Neuro deficit, acute, stroke suspected Vomiting, intractabilityof vomiting not specified, presence of nausea not specified, unspecifiedvomiting type Comparison studies: Head CT 01/13/2021.Technique: Axial CT scans obtained from the skull base to the vertex withoutwithout IV contrast followed by additional axial images through the neckand intracranial regions duringthe injection of IV contrast. A head CTwith contrast was obtained as well. For optimization of anatomicevaluation, multiplanar reconstruction, maximum intensity projections,and advanced 3-D off- line postprocessing were obtained on a dedicatedstand-alone workstation under the direct supervision of the interpretingphysician.Dose modulation, iterative reconstruction, and/or weight basedadjustment of themA/kV was utilized to reduce the radiation dose to aslow as reasonably achievable.IV Contrast 100 ccof Omnipaque.Complication: NoneRadiation dose: Total DLP: 3273 mGy*cmEstimated Effective Dose: DLP x0.031 mSvFINDINGS: Head CT's without and with contrast: No enhancing abnormalities.No changes from the same day noncontrast head CT.See impression.Neck and Intracranial CTAs:If present, stenosis at thecarotid bulbs is measured based on NASCETcriteria, i.e. area of maximal stenosis compared to the cervical ICA distal to thebulb.Aortic arch and major branches: Patent. No abnormalities.Common carotid arteries: Patent with mild luminal irregularity bilaterally which may be due tomild soft atherosclerotic plaque without significant stenosis.Carotid bulbs: Patent, no (0%) stenosis by NASCET criteria.Mild calcified and soft plaque bilaterally without significant stenosis.Internal carotid arteries: Patent with calcified plaque in the bilateral cavernous andparaophthalmic segments without significant sten osis.Anterior cerebral arteries:Patent. No proximal branch occlusion or stenosis.Middle cerebral arteries: Patent, no proximal branch occlusion.High- grade short segmental stenosis within the proximal segment of theleft posterior M2 MCA division and mild stenosis within the proximalsegment of the right posterior M2 MCA division.Right vertebral artery:Patent, no abnormalities.Left vertebral artery:Nonvisualized left V1 through V2 segments with partial segmentalopacification of the distal left V3 segment. The proximal left F3vhvxpkx is with filling defect which may reflect thrombus (series 4,image 317) . The remaining left intradural V4 segment is with luminalirregularity and with severe stenosis in its proximal segment beyond thearea of probable thrombus.Basilar artery: Patent with mild luminal irregularity which may be due toatherosclerosis without significant stenosis.Posterior cerebral arteries: Patent, no proximal branch occlusion. Mild luminal irregularity withoutsignificant stenosis likely due to atherosclerosis. 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 Mildretrolisthesis of C5 over C6. Mild multilevel disc degeneration withmild canal stenosis at C5-C6. Multilevel uncovertebral and facetarthrosis contribute to multilevel foraminal stenosis which is moderateleft and mild right at C2-C3, moderate bilaterally at C3-C4, moderateright and mild left at C4-C5, severe bilaterally at C5-C6.Other findings:Dental caries with multifocal periodontal disease.Partially opacified left maxillary sinus with peripheral mucosalthickening and polyps or retention cysts and mild mucosal thickening inthe right maxillary sinus. Maxillary periodontal disease raises thepossibility for Yane genic source for maxillary sinus and formation.IMPRESSIONIMPRESSION: Head CT:1. No mass, acute hemorrhage or acute cortical infarct.2. 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 Severe chronic microvascular ischemic changes.4. No changes from the same day noncontrast head CT on 01/13/2021 at8:53 PM.Brain MRI may further evaluate if there is persistent concern for acuteischemia.Neck and intracranial CTAs:1. Partially occluded left vertebral artery with nonopacified V1 and G0nllsddnp, partially reconstituted flow within the V3 segment, fillingdefect compatible with age-indeterminate thrombus in the intradural I0epzktpp near the dural insertion and high-grade stenosis in the proximalintradural V4 segment.2. Stenosis in the bilateral posterior M2 MCA divisions, high-grade onthe left and mild on the right. Stenosis on the left may place thispatient in risk for insufficiency ischemia in the distal posterior leftMCA territory.3. No other major arterial branch occlusion or significant stenosis inthe neck or intracranial circulation.Dictated By: Ananth Sahni MD, 01/13/2021 10:42 PMI have reviewed the study and agree with the findings in this report.Signed By: Norberto Sanchez MD, 01/13/2021 11:25 PMGrace HospitalCT HEAD W/O [id number] 22:21:09IMPRESSION: 1. No acute intracranial abnormalities.2. 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 Severe chronic microvascular ischemic changes. Dictated By: Ananth Plata, 01/13/2021 10:12 PM I have reviewed the study and agree with the findings in this report. Signed By: Norberto Sanchez MD, 01/13/2021 10:21 PM Interface, Rad/Mammog In - 01/13/2021 10:42 PM CDTFormattingof this note might be different from the original.Exam : Head CT without contrastHistory: Neuro deficit, acute, stroke suspected Vomiting, intractabilityof vomiting not specified, presence of nausea not specified, unspecifiedvomiting type Comparison studies: None. Technique: Axial scans were obtained from skull base to the vertex.Coronal and sagittal reconstructions obtained from the axial data.Dose modulation, iterative reconstruction, and/or weight basedadjustment of the mA/kV was utilized to reduc e the radiation dose to aslow as reasonably achievable.IV Contrast: None Complications: NoneRadiation Dose: Total DLP: 3273 mGy*cm.Estimated Effective Dose: DLP x 0.0021 mSvFINDINGS:Scalp/Skull:No abnormalities.Brain sulci: Appropriate for patient's age.Ventricles: Normal in size and configuration. No hydrocephalus.Extra-axial:No masses or fluid collections.Parenchyma: Chronic wedge-shaped cortical/subcortical infarcts with hypodenseencephalomalacia in the left posterior cerebellum. Additional smallchronic cortical insult in the right superior parietal lobe near theintraparietal sulcusIll-defined confluent hypodensities in the supratentorial white matterare nonspecific but are most compatible withmicrovascular ischemicchanges. Evaluation for subcortical ischemia is limited in the contextof diffuse subcortical hypodense changes.No masses, acute hemorrhage, or acute cortical insults.Dural sinuses: No abnormal densities.Sellar/Suprasellar region: Intact.Skull base and craniocervical junction: Intact.Incidental findings: Bilateral atherosclerotic calcifications in the carotid siphons.IMPRESSIONIMPRESSION:1. No acute intracranial abnormalities.2. 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 Severe chronic microvascular ischemic changes.Dictated By: Ananth Sahni MD, 01/13/2021 10:12 PMI have reviewed the study and agree with the findings in this report.Signed By: Norberto Sanchez MD, 01/13/2021 10:21 PM [facility] HospitalAlcohol, Medical Use [id number] 21:44:00 Test Item Value Reference Range Interpretation Comments ALCOHOL, SERUM - RESULT <0.01 See_Comment [Au tomated message] (BKR) (test code = The syste m which 26354194) generated this result transmitted ref erence range: <0.10 g/ dL. The reference range was not used to int erpret this result as normal/abnormal . Lab Interpretation (test Normal code = 97351-4) [facility] [id number] 21:43:00 Test Item Value Reference Range Interpretation Comments Lipase (test code = 28488836) 16 U/L 11-82 Lab Interpretation (test code = Normal 30770-3) [facility] HospitalLiver [id number] 21:43:00 Test Item Value Reference Range Interpretation Comments Bilirubin, Total (test code = 0.4 mg/dL 0.2-1.2 2885-2) Alkaline Phosphatase (test code = 56 U/L 34-104 20659839) AST (test code = 62565312) 22 U/L 13-39 Direct Bilirubin (test code = 0.1 mg/dL 0-0.2 1968-7) ALT (test code = 53152638) 19 U/L 7-52 Albumin (test code = 83779-6) 4.4 g/dL 4.2-5.5 Lab Interpretation (test code = Normal 90998-9) [facility] HospitalTroponin [id number] 21:41:00 Test Item Value Reference Interpretation Comments Range Troponin I (test <0.03 See_Comment [Automated code = 72411095) message] Th e system which generated this result transmitted reference range : <0.04 ng/mL. e reference range was not used to interpret this result as normal/abnormal . PAMELA (test code = Serum Troponin I PAMELA) result from apparently healthy adults: < 0.04 ng/mL. Elevated Troponin >= 0.04 ng/mL is indicative of myocardial injury. Results should be interpreted in conjunction with other diagnostic tests and clinical information. When serial samples are obtained and troponin is considered in the clinical context of each patient, acute events such as myocardial infarction (NM) may be distinguished from other conditions causing myocardial injury. The reference cut off for apparently healthy pediatric population is not established, and therefore the pediatric troponin I result should be interpreted with caution. Heterophile antibodies, e.g. HAMA, in patient samples may cause erroneous results. Patients who have been regularly exposed to animals or have received immunoglobulin products may present with such interfering antibodies. Fibrin clot in specimen may cause falsely elevated values. Lab Interpretation Normal (test code = 55576-1) [facility] AlbumaticPT/INR/[id number] 21:23:00 Test Item Value Reference Range Interpretation Comments PT (test code = 12.4 See_Comment [Automated message] 5902-2) The system [employer] generated this result transmitted ref erence range: 11.7 - 1 4.5 Seconds. The re ference range was not u sed to interpret this result as normal/abnor mal. INR (test code = 0.9 Refer to INR 2.0 - 3.0 f or moderate 33032896) ranges intensity anticoagulation 2.5 - 3.5 for high in tensity anticoagulation PTT (test code = 22.9 See_Comment L The recomme nded 79956282) therapuetic ran ge is an APTT 61-103 seconds which correspon ds to 0.3-0.7 anti Xa u/ml. [Automated mess age] The system [employer] generated this result transmitted ref erence range: 23.9 - 3 6.0 Seconds. The re ference range was not u sed to interpret this result as normal/abnor mal. Lab Interpretation Abnormal (test code = 53314-4) [facility] docked [id number] 20:43:00 Test Item Value Reference Range Interpretation Comments Sodium POC (test code = 142 mmol/L 136-145 22161825) Potassium POC (test code 3.9 mmol/L 3.5-5.1 = 62100162) Chloride POC (test code 102 mmol/L 98-107 = 66975957) TCO2 POC (test code = 30 mmol/L 21-32 Physic fadia Notified 28757819) Urea Nitrogen POC (test 10 mg/dL 7-18 code = 65977271) Glucose POC (test code = 104 mg/dL 74-106 07605116) Hemoglobin POC (test 13.9 g/dL 12-16 code = 69340007) Hematocrit POC (test 41.0 % 37-47 code = 82150174) Lab Interpretation (test Normal code = 08165-3) [facility] CREATININE POC docked [id number] 20:43:00 Test Item Value Reference Range Interpretation Comments Creatinine POC (test 1.2 mg/dL 0.6-1.3 Physici an Notified code = 82248401) eGFR If non- Am 64 See_Comment L [Aut omated message] (test code = 43616925) The s ystem which generated this result transmit robson reference range : >=90 mL/min/1.7 3 m2. The reference r nate was not used to interpret this result as normal/abnormal . eGFR If Am (test 74 See_Comment L [A utomated message] code = 41136595) The system which generated this result transmit robson reference range : >=90 mL/min/1.7 3 m2. The reference r nate was not used to interpret this result as normal/abnormal . Lab Interpretation (test Abnormal code = 23219-9) [place] [address] LEAD [id number] 20:20:3812 LEAD EKG FOR [facility] Test Date: 8989-54-75Pmd Name: PEACE NAVARRO Department: 5520Patient ID: [id number] Room: Gender: Mold Machine Operator: BLADIMIR: 1960 Requested By: ANTHONY ZHU Order Number: [id number] Diego MD: milton shields MeasurementsIntervals [place] Rate: 64 P: 67PR: 147 QRS: 49QRSD: 90 T: 56QT: 438 QTc: 447 Interpretive StatementsSINUS RHYTHMEARLY REPOLARIZATIONElectronically Signed On 01-13-2021 21:44:10 CDT by milton Stephenson [facility] HospitalCoronavirus (CoVID-19), Influenza A/B viral [id number] 17:09:00 Test Item Value Reference Range Interpretation Comments COVID-19 (SARS-COV-2) Not Detected Not Detected (test code = 42964-3) Influenza A (test code Not Detected Not Detected = 92433-2) Influenza B (test code Not Detected Not Detected = 76431-0) PAMELA (test code = PAMELA) INTERPRETATION: The trisha SARS-CoV-2 & Influenza A/B assay uses real-time reverse transcriptase polymerase chain reaction (RT-PCR) technology to rapidly detect and differentiate between SARS-CoV-2, influenza A, and influenza B viruses from nasopharyngeal and nasal swab specimens. Positive results for any one of the three viruses are indicative of active infection. Influenza A negative and Influenza B negative results should be considered presumptive in samples that have a positive SARS-CoV-2 result. Negative results for SARS-CoV-2 virus do not preclude SARS-CoV-2 infection and should not be used as the sole basis for patient management decisions. Clinical correlation with patient history and other diagnostic information is recommended. For invalid results, a second sample should be submitted for repeat testing. COMMENT: In accordance with the FDA's guidance document "Policy for Diagnostic Tests for Coronavirus Disease-2019 during the Public Health Emergency", this test was developed, and its performance characteristics were verified by the [facility] molecular diagnostics laboratory and is authorized for clinical diagnostic use. This laboratory is certified under the Clinical Laboratory Improvement Amendments (CLIA) as qualified to perform high complexity clinical laboratory testing. Lab Interpretation Normal (test code = 16109-5) [place] [address] LEAD [id number] 10:01:4612 LEAD EKG FOR [facility] Test Date: 9385-95-15Xwm Name: PEACE NAVARRO Department: 5520Patient ID: [id number] Room: Gender: M Mold Machine Operator: [id number]: 1960 Requested By: EARL MENDEZ [facility] Number: [id number] Reading MD: Fawn Kaminski M.D. MeasurementsIntervals [place] Rate: 81 P:77PR: 143 QRS: 70QRSD: 79 T: 58QT: 373 QTc: 410 Interpretive StatementsSINUS RHYTHMElectronically Signed On 11-09-2020 10:05:53 CDT by Fawn Kaminski M.D. [place]ervilleMYOCARDIAL PERFUSION SPECT REST/STRES [id number] 15:50:00MYOCARDIAL PERFUSION SPECT REST/STRES MULTIPLE Myocardial Perfusion Report PEACE NAVARRON: [id number] Age: 59 Gender: M : 1960 Exam Date: 02/25/2020 09:03 Exam Location: [facility] Ordering Phys: МАРИЯ HERRERA Referring Phys: Reading Phys: Fawn Kaminski MD Fellow Phys: Balta Landaverde M.D. Fellow Phys: Lakesha Rodriguez M.D. Resident: Technologist: Radha Crawford Reason For Exam: Indications: Chest pain, unspecified ICD-9 Codes: R07.9 Exam Type: Myocardial Perfusion Report Procedure CPT: 71024 Additional CPT: BP: / HR: Risk Factors: Previous Cardiac Procedures: Cardiac History: 59 yo M with CVA, former smoker who presents with pressure like chest pain when he sleeps on his left side. Noradiation of pain. Occasionally occurs with exertion. Pertinent Meds: Meds past 24 hrs: Pretest Chest Pain: Atypical angina CARDIOLOGY STRESS TEST Pharmacologi Cardiology exercise stress test results pending under separate report. Please look in [facility] under the Procedures Tab in Chart Review. IMAGE PROTOCOL Str/Rst 1 Day Tech Radiopharmaceutical Dose (mCi) Duration (min) Img Date Img Time Rest: Tc-99m 39 REST DATE 10:50 Tetrofosmin Stress: Tc-99m 13 STRESS DATE 8:33 Tetrofosmin Administration Site: Left antecubital fossa SPECT RESULTS Technical Quality: Adequate Raw Data Analysis: Subdiaphragmatic activity Stress Perfusion Rest Perfusion Summed Stress Score:0 Summed Rest Score: 0 Summed Difference Score: 0 0 - Normal 2 - Abnormal Uptake 4 - Absent 1 - Mildly Reduced Uptake 3 - Severely ReducedTracer Uptake X - Not Interpretable RV: Stress images show a normal pattern of perfusion. Resting images show no change in the pattern of perfusion. FUNCTION (calculated via Gated SPECT) Resting LV EF:% EDV: 119 ml (70-100 ml) Post Stress LV EF: 63 % TID: 1.03 ESV: 44 ml (30-50 ml) Technical Quality:LV Size & Function: Normal left ventricular size and ejection fraction. LV Regional Function: Normal left ventricular wall motion and thickening. Other Findings: Variable Not Implemented IMPRESSIONS 1. Myocardial perfusion imaging is normal. 2. No scan evidence of ischemia or scar. 3. Overall leftventricular systolic function is normal with normal wall motion. 4. Normal gated SPECT left ventricular ejection fraction of >54%. 5. Normal left ventricular size. 6. Please see ECG stress report in Epic for details of tracing interpretation. 7. No previous study for comparison. [place] Control: Donot remove! Fawn Kaminski MD (Electronically Signed) Final Date: 25 February 2020 15:50 [facility] STRESS-TRAC[facility] [id number] 15:31:31Stress Test [facility] Test Date: 1976-77-25Ewy Name: PEACE NAVARRO Department: 5337Patient ID: [id number] Room: Gender: Mold Machine Operator: : 1960 Requested By: FAWN KAMINSKI MOrder Number: [id number] Reading MD: Fawn Kaminski M.D. Interpretive StatementsEKG PORTION OF PHARMACOLOGIC NUCLEAR STRESS TEST1. Patient was infused with regadenoson 0.4 mg and monitored per protocol.2. Heart rate was 68 bpm at rest, and 90 bpm after regadenoson.3. Blood pressure was 131/75 mm Hg at rest, and 145/85 after regadenoson.4. Baseline ECG: Normal sinus rhythm.5. No chest pain, ischemic ECG changes or sustained arrhythmias wereprovoked. 6. Please see results from nuclear stress test for perfusion data. Electronically Signed On 02-25-2020 15:31:28 CDT by Fawn Kaminski M.D.[facility]en
[2023-03-09 19:20] LABS: Absolute Lymphocytes (CBC) 2.4 K/uL (0.7-4.9); Hematocrit 38.6 % (39.6-49.0); Lymphocytes % 29.2 % (15.3-44.8); MCV 98.6 fL (80-100); Platelets 290 thou/uL (152-406); RBC Red Blood Cell Count 3.92 M/uL (4.33-5.43)
[2023-03-09 19:26] LABS: Protime INR 0.86; Specific Gravity 1.017 (1.005-1.030); Urine Bilirubin NEGATIVE (Negative); Urine Blood Negative (Negative); Urine Clarity Clear (Clear); Urine Color Light-Yellow (Yellow); Urine Glucose NEGATIVE (Negative); Urine Protein NEGATIVE (Negative); Urine Urobilinogen Normal (Normal); Urine pH 6.5 (5.0-7.0)
[2023-03-09 19:36] LABS: Barbiturates NEGATIVE (NEGATIVE); Benzodiazepines NEGATIVE (NEGATIVE); Cocaine NEGATIVE (NEGATIVE); METHAMPHETAM NEGATIVE (NEGATIVE); Methadone NEGATIVE (NEGATIVE); Opiates NEGATIVE (NEGATIVE); Phencyclidine NEGATIVE (NEGATIVE); THC Cannibis NEGATIVE (NEGATIVE)
[2023-03-09 19:39] LABS: ALT/SGPT 47 U/L (16-61); AST/SGOT 33 U/L (15-37); Albumin 3.3 g/dL (3.4-5.0); Alkaline Phosphatase 70 U/L (45-117); BUN Blood Urea Nitrogen 8 mg/dL (7-18); Bicarbonate 28 mEq/L (21-32); Bilirubin Direct 0.1 mg/dL (0-0.2); Bilirubin Indirect, Calculated 0.2 mg/dL (0.2-0.8); Bilirubin Total 0.3 mg/dL (0.2-1.0); Glomerular Filtration Rate 78 ml/min (=/>90); Glucose Level 106 mg/dL (74-106); Potassium 3.5 mEq/L (3.5-5.1); Protein, Total 6.7 g/dL (6.4-8.2); Sodium Level 141 mEq/L (136-145)
--- NOTE | 2023-03-09 20:52 | EDPHYS ---
Physician Documentation [facility] Name: Shashank Us Age: 62 yrs Sex: Male : 1960 Arrival Date: 03/09/2023 Time: 17:55 Bed 19 Private MD: ED Physician David Patel HPI: 03/09 19:19 This 62 yrs old Black Male presents to ER via Law Enforcement with complaints of allison Suicidal Ideation. 19:19 The patient presents to the emergency department with anxiety, depression, suicide allison ideation, and the patient has a plan, to crash a car, to shoot self. Onset: The symptoms/episode began/occurred 2 week(s) ago. Past psychiatric history: Prior diagnosis: depression. Associated signs and symptoms: Pertinent positives; anxiety, suicide ideation. Severity of symptoms: At their worst the symptoms were mild in the emergency department the symptoms are unchanged. Historical: - Allergies: 18:36 No Known Allergies; hb - PMHx: 18:36 Depression; hb - PSHx: 18:36 None; hb - Immunization history:: Adult Immunizations up to date. - Social history:: Smoking status: Patient denies any tobacco usage or history of. Patient uses alcohol, last drink was 03/06. ROS: 19:20 Constitutional: Negative for fever, chills, and weight loss, Eyes: Negative for injury, allison pain, redness, and discharge, ENT: Negative for injury, pain, and discharge, Neck: Negative for injury, pain, and swelling, Cardiovascular: Negative for chest pain, palpitations, and edema, Respiratory: Negative for shortness of breath, cough, wheezing, and pleuritic chest pain, Abdomen/GI: Negative for abdominal pain, nausea, vomiting, diarrhea, and constipation, Back: Negative for injury and pain, : Negative for injury, bleeding, discharge, and swelling, MS/Extremity: Negative for injury and deformity, Skin: Negative for injury, rash, and discoloration, Neuro: Negative for headache, weakness, numbness, tingling, and seizure, Allergy/Immunology: Negative for hives, rash, and allergies, Endocrine: Negative for neck swelling, polydipsia, polyuria, polyphagia, and marked weight changes, Hematologic/Lymphatic: Negative for swollen nodes, abnormal bleeding, and unusual bruising, 19:20 Psych: Positive for anxiety, depression, Exam: 19:20 Constitutional: This is a well developed, well nourished patient who is awake, alert, allison and in no acute distress. Head/Face: Normocephalic, atraumatic. Eyes: Pupils equal round and reactive to light, extra-ocular motions intact. Lids and lashes normal. Conjunctiva and sclera are non-icteric and not injected. Cornea within normal limits. Periorbital areas with no swelling, redness, or edema. ENT: Nares patent. No nasal discharge, no septal abnormalities noted. Tympanic membranes are normal and external auditory canals are clear. Oropharynx with no redness, swelling, or masses, exudates, or evidence of obstruction, uvula midline. Mucous membranes moist. Neck: Trachea midline, no thyromegaly or masses palpated, and no cervical lymphadenopathy. Supple, full range of motion without nuchal rigidity, or vertebral point tenderness. No Meningismus. Chest/axilla: Normal chest wall appearance and motion. Nontender with no deformity. No lesions are appreciated. Cardiovascular: Regular rate and rhythm with a normal S1 and S2. No gallops, murmurs, or rubs. Normal PMI, no JVD. No pulse deficits. Respiratory: Lungs have equal breath sounds bilaterally, clear to auscultation and percussion. No rales, rhonchi or wheezes noted. No increased work of breathing, no retractions or nasal flaring. Abdomen/GI: Soft, non-tender, with normal bowel sounds. No distension or tympany. No guarding or rebound. No evidence of tenderness throughout. Back: No spinal tenderness. No costovertebral tenderness. Full range of motion. Male : Normal genitalia with no discharge or lesions. Skin: Warm, dry with normal turgor. Normal color with no rashes, no lesions, and no evidence of cellulitis. MS/ Extremity: Pulses equal, no cyanosis. Neurovascular intact. Full, normal range of motion. Neuro: Awake and alert, GCS 15, oriented to person, place, time, and situation. Cranial nerves II-XII grossly intact. Motor strength 5/5 in all extremities. Sensory grossly intact. Cerebellar exam normal. Normal gait. Psych: Awake, alert, with orientation to person, place and time. Behavior, mood, and affect are within normal limits. 20:48 ECG was reviewed by the Attending Physician. [facility] Vital Signs: 18:31 BP 169 / 110; Pulse 78; Resp 16; Temp 98; Pulse Ox 100% on R/A; Weight 99.34 kg; Height hb 6 ft. 1 in. ; Pain 0/10; 20:00 BP 152 / 93; Pulse 85; Resp 18 S; Pulse Ox 98% on R/A; ha1 18:31 Body Mass Index 28.89 (99.34 kg, 185.42 cm) hb 18:31 Pain Scale: Adult hb Floresita Coma Score: 20:37 Eye Response: spontaneous(4). Motor Response: obeys commands(6). Verbal Response: allison oriented(5). Total: 15. MDM: 18:17 Patient medically screened. snw 18:19 Patient medically screened. allison 18:19 Patient medically screened. allison 19:21 Differential diagnosis: drug withdrawal. acute psychotic break, depression, psychosis allison secondary to non-compliance. Differential Diagnosis altered mental status. Data reviewed: vital signs, nurses notes, lab test result(s), EKG. Consideration of Admission/Observation Patient was admitted/placed on observation. Escalation of care including admission/observation considered. I considered the following discharge prescriptions or medication management in the emergency department Medications were administered in the Emergency Department. See MAR. Independent interpretation of the following test(s) in the Emergency Department EKG: See my EKG interpretation above. Test considered but Not performed: X-ray: no cxr. Historians other than the Patient: Law enforcement: informed. Care significantly affected by the following chronic conditions: depression. Care significantly affected by the following Social Determinants of Health: Poor access to transportation, Misuse of alcohol and/or drugs. 20:47 ED course: not suicidal, resolved. [facility] 03/09 18:19 Order name: Acetaminophen; Complete Time: 19:44 [facility] 03/09 18:19 Order name: Basic Metabolic Panel; Complete Time: 19:44 [facility] 03/09 18:19 Order name: CBC with Diff; Complete Time: 19:44 [facility] 03/09 18:19 Order name: ETOH Level; Complete Time: 19:44 [facility] 03/09 18:19 Order name: Hepatic Function; Complete Time: 19:44 [facility] 03/09 18:19 Order name: PT-INR; Complete Time: 19:44 [facility] 03/09 18:19 Order name: Ptt, Activated; Complete Time: 19:44 [facility] 03/09 18:19 Order name: Salicylate [facility] 03/09 18:19 Order name: Urinalysis w/ reflexes; Complete Time: 19:44 [facility] 03/09 18:19 Order name: Urine Drug Screen; Complete Time: 19:44 [facility] 03/09 18:19 Order name: EKG; Complete Time: 18:20 [facility] 03/09 18:19 Order name: EKG - Nurse/Tech; Complete Time: 21:13 [facility] 03/09 18:19 Order name: IV Saline Lock; Complete Time: 19:18 [facility] 03/09 18:19 Order name: Labs collected and sent; Complete Time: 19:18 [facility] 03/09 18:19 Order name: Suicide Screening ([place]); Complete Time: 19:57 [facility] EC:48 Rate is 73 beats/min. Rhythm is regular. QRS [place] is Normal. LA interval is normal. QRS allison interval is normal. QT interval is normal. No Q waves. T waves are Normal. No ST changes noted. Clinical impression: Normal ECG and No evidence of ischemia. Interpreted by me. Reviewed by me. Administered Medications: 19:35 Drug: NS 0.9% IV 1000 ml IV at 1 bolus Per protocol; 1000 mL bolus Route: IV; Rate: 1 ha1 bolus; Site: right antecubital; 21:12 Follow up: Response: No adverse reaction; IV Status: Completed infusion; IV Intake: ha1 1000ml 21:13 Not Given (Physician Discretion): ativan1 mg IVP once ha1 Disposition Summary: 03/09/23 20:51 Discharge Ordered Notes: Location: Home allison Problem: new allison Symptoms: have improved allison Condition: Stable allison Diagnosis - Suicidal ideations allison - Major depressive disorder, recurrent, moderate allison - Essential (primary) hypertension allison Followup: allison - With: Private Physician - When: 2 - 3 days - Reason: Recheck today's complaints, Continuance of care, Re-evaluation by your physician Followup: allison - With: Noé Sandoval MD - When: 2 - 3 days - Reason: Recheck today's complaints, Continuance of care, Re-evaluation by your physician Discharge Instructions: - Discharge Summary Sheet allison - Hypertension, Adult allison - Suicidal Feelings: How to Help Yourself allison - Helping Someone Who is Suicidal allison - Hypertension, Adult, [id number]-nc-[id number] allison - How to Take Your Blood Pressure, [id number] allison - Managing Your Hypertension allison - Persistent Depressive Disorder, Adult allison - Major Depressive Disorder, Adult, [id number] allison - Supporting Someone With Depression allison Forms: - Medication Reconciliation Form allison - Thank You Letter allison - Antibiotic Education allison - Prescription Opioid Use allison - Patient Portal Instructions allison - Leadership Thank You Letter allison Signatures: Dispatcher [employer] David Ramos MD MD cha Waters, Shelly, ENTERPRISE CLOUD ARCHITECT-C ENTERPRISE CLOUD ARCHITECT-Csnw Claire White, RN RN Helen Murphy RN RN ha1
--- NOTE | 2023-03-09 20:52 | ER ---
Nurse's Notes [facility] Name: Shashank Us Age: 62 yrs Sex: Male : 1960 Arrival Date: 03/09/2023 Time: 17:55 Bed 19 Private MD: Diagnosis: Suicidal ideations;Major depressive disorder, recurrent, moderate;Essential (primary) hypertension Presentation: 03/09 18:31 Chief complaint: In treatment for alcohol at [facility] since Sunday, last drink was hb Sunday, pt made suicidal statements to other patients and staff over the last couple days. Pt stated "I have been listening to people talking about their wives and children and I don't have any relationships like that and it makes me feel sad, I just want to go to sleep forever because you have no worries when you are asleep." Plan is to crash a car, shoot self with a gun, or take a bunch of pills. Hx of depression and SI, has been inpatient at [facility], and [facility]. Denies previous attempt. АНДРЕЙ No. [id number] placed in paper chart. Coronavirus screen: At this time, the client does not indicate any symptoms associated with coronavirus-19. Ebola Screen: No symptoms or risks identified at this time. Initial Sepsis Screen: Does the patient meet any 2 criteria? No. Patient's initial sepsis screen is negative. Does the patient have a suspected source of infection? No. Patient's initial sepsis screen is negative. Risk Assessment: Do you want to hurt yourself or someone else? Patient reports no desire to harm self or others. Onset of symptoms was March 09, 2023. 18:31 Method Of Arrival: Law Enforcement: [place] hb 18:31 Acuity: OZZY 2 hb Historical: - Allergies: 18:36 No Known Allergies; hb - PMHx: 18:36 Depression; hb - PSHx: 18:36 None; hb - Immunization history:: Adult Immunizations up to date. - Social history:: Smoking status: Patient denies any tobacco usage or history of. Patient uses alcohol, last drink was 03/06. Screenin:00 Abuse screen: Denies threats or abuse. Denies injuries from another. Nutritional ha1 screening: No deficits noted. Tuberculosis screening: No symptoms or risk factors identified. 19:00 [facility] ED Fall Risk Assessment (Adult) History of falling in the last 3 months, ha1 including since admission No falls in past 3 months (0 pts) Confusion or Disorientation No (0 pts) Intoxicated or Sedated No (0 pts) Impaired Gait No (0 pts) Mobility Assist Device Used No (0 pt) Altered Elimination No (0 pt) Score/Fall Risk Level 0 - 2 = Low Risk Oriented to surroundings, Maintained a safe environment, Educated pt \\T\\ family on fall prevention, incl call for assistance when getting out of bed, Hourly rounding (assess needs \\T\\ fall precautionary measures) done. Assessment: 19:00 General: Appears comfortable, Behavior is calm, cooperative. Pain: Denies pain. Neuro: ha1 Level of Consciousness is awake, alert, obeys commands, Oriented to person, place, time, situation. Neuro: Reports Pt. states " I do not want to kill myself". Cardiovascular: Patient's skin is warm and dry. Respiratory: Airway is patent Respiratory effort is even, unlabored, Respiratory pattern is regular, symmetrical. GI: Abdomen is round non-distended. Derm: Skin is normal. 20:00 Reassessment: Patient and/or family updated on plan of care and expected duration. Pain ha1 level reassessed. Patient is alert, oriented x 3, equal unlabored respirations, skin warm/dry/pink. 21:00 Reassessment: Patient and/or family updated on plan of care and expected duration. Pain ha1 level reassessed. Patient is alert, oriented x 3, equal unlabored respirations, skin warm/dry/pink. Psych: 19:00 [place] Suicide Severity Screening: In the past month, have you wished you were ha1 or wished you could go to sleep and not wake up? Patient responds "No." "In the past month, have you actually had any thoughts of killing yourself?" Patient responds "no." "In your lifetime, have you ever done anything, started to do anything, or prepared to do anything to end your life?" Patient responds "no.". Subjective: Patient's mood is HAPPY. Objective: Patient is cooperative, Speech is normal, Affect is appropriate. Interventions: Removed personal items and placed in bag. Patient placed in hospital gown. Searched person for dangerous items. Safety Checks: Personal items have been removed. Pt has been placed in a hallway bed/chair. Pt denies substance abuse. Commitment: Patient will be an involuntary commitment. Vital Signs: 18:31 BP 169 / 110; Pulse 78; Resp 16; Temp 98; Pulse Ox 100% on R/A; Weight 99.34 kg; Height hb 6 ft. 1 in. ; Pain 0/10; 20:00 BP 152 / 93; Pulse 85; Resp 18 S; Pulse Ox 98% on R/A; ha1 18:31 Body Mass Index 28.89 (99.34 kg, 185.42 cm) hb 18:31 Pain Scale: Adult hb Floresita Coma Score: 20:37 Eye Response: spontaneous(4). Motor Response: obeys commands(6). Verbal Response: allison oriented(5). Total: 15. ED Course: 18:16 Patient arrived in ED. eb 18:17 David Patel MD is Attending Physician. allison 18:17 Kimberly Gale FNP-C [facility]. snw 18:36 Triage completed. hb 18:37 Arm band placed on. hb 19:00 Patient has correct armband on for positive identification. Placed in gown. Bed in low ha1 position. Call light in reach. Side rails up X 1. 19:17 Inserted saline lock: 22 gauge in right antecubital area, using aseptic technique. sm8 Blood collected. 20:36 Helen Murphy, RN is Primary Nurse. ha1 20:51 Noé Sandoval MD is Referral Physician. allison 21:00 Provided Education on: need to follow up as an out patient. ha1 21:20 No provider procedures requiring assistance completed. ha1 21:20 IV discontinued, intact, bleeding controlled, No redness/swelling at site. Pressure ha1 dressing applied. Administered Medications: 19:35 Drug: NS 0.9% IV 1000 ml IV at 1 bolus Per protocol; 1000 mL bolus Route: IV; Rate: 1 ha1 bolus; Site: right antecubital; 21:12 Follow up: Response: No adverse reaction; IV Status: Completed infusion; IV Intake: ha1 1000ml 21:13 Not Given (Physician Discretion): ativan1 mg IVP once ha1 Medication: 21:20 VIS not applicable for this client. ha1 Intake: 21:12 IV: 1000ml; Total: 1000ml. ha1 Outcome: 20:51 Discharge ordered by . allison 21:20 Discharged to home ambulatory, ha1 21:20 Condition: stable 21:20 Discharge instructions given to patient, Instructed on discharge instructions, follow up and referral plans. Demonstrated understanding of instructions, follow-up care, 21:31 Patient left the ED. ha1 Signatures: David Patel MD MD cha Waters, Shelly, GLOST TILE SORTER-C GLOST TILE SORTER-Csnw Claire White, RN RN Regina Starks Heidy, RN RN 1 Carmela Logan 8
[2023-03-09 22:32] VITALS: BP 169/110; TEMP 98; O2SAT 100
--- NOTE | 2023-03-12 12:37 | EKG ---
Test Date: 2023-03-09 Test Time: 20:44:43 Exterior Door Installer: CORA MEASUREMENT RESULTS: Intervals: Rate: 73 WI: 184 QRSD: 82 QT: 398 QTc: 438 [place]: P: 68 WI: 184 QRS: 2 T: 2 INTERPRETIVE STATEMENTS: Normal sinus rhythm Normal ECG No previous ECG available for comparison Electronically Signed On 03-12-23 12:31:59 CDT by Joseph Garvey
== END 2023-03-09 21:31 | disposition home or self-care (01) ==
LOC: ER 17:55
DX: R45.851 Suicidal ideations (principal); F33.1 Major depressive disorder, recurrent, moderate; I10 Essential (primary) hypertension
CPT/HCPCS: 36415; 80048; 80076; 80143; 80179; 80307; 81003; 82077; 85025; 85610; 85730; 93005; 96360; 96361; 99285